=== PATIENT | female | born 1980 | race Caucasian/White ===

== ENCOUNTER 2019-06-25 14:34 | Inpatient (IN) | payer OTHER, MEDICAID ==
[2019-06-25 15:46] LABS: ADD MAN DIFF? NO
[2019-06-25 15:48] LABS: WHITE BLOOD COUNT 11.2 10^3/ul (4.8-10.8)
[2019-06-25 15:48] LABS: BASOPHIL # 0.1 10^3/ul (0.0-0.1); BASOPHILS % 0.4 % (0.0-2.0); EOSINOPHILS # 0.3 10^3/ul (0.0-0.5); EOSINOPHILS % 2.9 % (0.0-7.0); HEMATOCRIT 34.8 % (37.0-47.0); HEMOGLOBIN 10.9 g/dl (12.0-16.0); LYMPHOCYTES # 1.4 10^3/ul (0.8-2.9); LYMPHOCYTES % 12.1 % (15.0-51.0); MEAN CORPUSCULAR HEMOGLOBIN 25.3 pg (29.0-33.0); MEAN CORPUSCULAR HGB CONC 31.3 g/dl (32.0-37.0); MEAN CORPUSCULAR VOLUME 80.7 fl (82.0-101.0); MEAN PLATELET VOLUME 10.7 fl (7.4-10.4); MONOCYTES % 8.8 % (0.0-11.0); NEUTROPHIL # 8.5 10^3/ul (1.6-7.5); NEUTROPHILS % 75.4 % (39.0-77.0); PLATELET COUNT 309 10^3/UL (140-415); RED BLOOD COUNT 4.31 10^6/ul (4.20-5.40); RED CELL DISTRIBUTION WIDTH 13.1 % (11.5-14.5)
[2019-06-25 16:07] LABS: INR 0.95; PARTIAL THROMBOPLASTIN TIME 29.5 Sec (23.0-35.0); PROTIME 12.8 Sec (11.9-14.9)
[2019-06-25 16:11] LABS: ALANINE AMINOTRANSFERASE 26 IU/L (13-69); ALBUMIN 4.3 g/dl (3.3-4.9); ALKALINE PHOSPHATASE 83 IU/L (42-121); ANION GAP 7 (5-13); ASPARTATE AMINO TRANSFERASE 18 IU/L (15-46); BILIRUBIN,INDIRECT 0.3 mg/dl (0-1.1); BILIRUBIN,TOTAL 0.3 mg/dl (0.2-1.3); BLOOD UREA NITROGEN 11 mg/dl (7-20); CALCIUM 9.6 mg/dl (8.4-10.2); CARBON DIOXIDE 30 mmol/L (21-31); CHLORIDE 101 mmol/L (97-110); CREATININE 0.69 mg/dl (0.44-1.00); Estimated GFR > 60 mL/min (>60); GLUCOSE 92 mg/dl (70-220); POTASSIUM 3.7 mmol/L (3.5-5.1); SODIUM 138 mmol/L (135-144); TOTAL PROTEIN 7.6 g/dl (6.1-8.1)
[2019-06-25] MEDS: PIPER-TAZO 3.375 GM IV (PMX) 100 ML IVPB (16:41)
[2019-06-25] MEDS: morphine 4 MG/ML VIAL IV (16:48)
[2019-06-25] MEDS ORDERED: ONDANSETRON 4 MG INJ IV (17:30)
[2019-06-25] MEDS ORDERED: ACETAMINOPHEN 325 MG TAB PO (17:30)
[2019-06-25] MEDS: VANCOMYCIN 1 GM (PMX) 250 ML IVPB (17:34)
[2019-06-25] MEDS: VANCOMYCIN 1 GM 250 ML IVPB ×2 (18:00)
[2019-06-25] MEDS ORDERED: ONDANSETRON (ODT) 4 MG TAB ODT (19:30)
[2019-06-25] MEDS: VANCOMYCIN IV PER PHARMACY XX (20:19)
[2019-06-25] MEDS: FERROUS GLUCONATE (EC) 325 MG TAB PO (20:38)
[2019-06-26] MEDS: PIPER-TAZO 3.375 GM IV (PMX) 100 ML IVPB ×3 (00:57→17:10)
[2019-06-26] MEDS: ACETAMINOPHEN 325 MG TAB PO (02:36)
[2019-06-26] MEDS: VANCOMYCIN 1 GM 250 ML IVPB ×2 (05:45→18:09)
[2019-06-26 06:30] LABS: ADD MAN DIFF? NO
[2019-06-26 06:39] LABS: WHITE BLOOD COUNT 10.2 10^3/ul (4.8-10.8)
[2019-06-26 06:39] LABS: BASOPHIL # 0.1 10^3/ul (0.0-0.1); BASOPHILS % 0.5 % (0.0-2.0); EOSINOPHILS # 0.3 10^3/ul (0.0-0.5); EOSINOPHILS % 2.8 % (0.0-7.0); HEMOGLOBIN 10.9 g/dl (12.0-16.0); LYMPHOCYTES # 1.3 10^3/ul (0.8-2.9); LYMPHOCYTES % 12.2 % (15.0-51.0); MEAN CORPUSCULAR HEMOGLOBIN 25.7 pg (29.0-33.0); MEAN CORPUSCULAR HGB CONC 31.1 g/dl (32.0-37.0); MEAN CORPUSCULAR VOLUME 82.5 fl (82.0-101.0); MEAN PLATELET VOLUME 10.9 fl (7.4-10.4); MONOCYTE # 0.9 10^3/ul (0.3-0.9); MONOCYTES % 8.4 % (0.0-11.0); NEUTROPHIL # 7.8 10^3/ul (1.6-7.5); NEUTROPHILS % 75.8 % (39.0-77.0); PLATELET COUNT 287 10^3/UL (140-415); RED BLOOD COUNT 4.24 10^6/ul (4.20-5.40)
[2019-06-26] MEDS: ACETAMINOPHEN 500 MG TAB PO (07:00)
[2019-06-26 07:01] LABS: ANION GAP 6 (5-13); BLOOD UREA NITROGEN 12 mg/dl (7-20); CALCIUM 9.6 mg/dl (8.4-10.2); CARBON DIOXIDE 31 mmol/L (21-31); CHLORIDE 103 mmol/L (97-110); CHOL/HDL RATIO 4.8 RATIO; CHOLESTEROL 132 mg/dl (100-200); CREATININE 0.73 mg/dl (0.44-1.00); Estimated GFR > 60 mL/min (>60); GLUCOSE 99 mg/dl (70-220); HDL CHOLESTEROL 27 mg/dl (34-88); LDL CHOLESTEROL,CALCULATED 76 mg/dl; POTASSIUM 4.3 mmol/L (3.5-5.1); SODIUM 140 mmol/L (135-144); TRIGLYCERIDES 143 mg/dl (0-149)
[2019-06-26] MEDS ORDERED: LIDOCAINE 2% (SDV) 5 ML INJ (07:53)
[2019-06-26] MEDS ORDERED: MIDAZOLAM 1 MG/ML 2 ML INJ (07:53)
[2019-06-26] MEDS ORDERED: PROPOFOL 40 ML (07:53)
[2019-06-26] MEDS ORDERED: ONDANSETRON 4 MG INJ (07:55)
[2019-06-26] MEDS ORDERED: FENTAnyl 50 MCG/ML VIAL ×2 (07:55→09:22)
[2019-06-26] MEDS ORDERED: FAMOTIDINE 20 MG INJ (07:56)
[2019-06-26] MEDS ORDERED: EPHEDrine 25 MG/5 ML SYG IV (08:00)
[2019-06-26] MEDS ORDERED: FENTAnyl 50 MCG/ML VIAL IV ×2 (08:00)
[2019-06-26] MEDS ORDERED: hydrALAzine 20 MG INJ IV (08:00)
[2019-06-26] MEDS ORDERED: ALBUTEROL 0.083% (NEB) 2.5 MG/3 ML AMP HHN (08:00)
[2019-06-26] MEDS ORDERED: morphine 2 MG INJ IV ×2 (08:00)
[2019-06-26] MEDS ORDERED: OXYCODONE/ACETAMINOPHEN (5/325) TAB PO ×2 (08:00)
[2019-06-26] MEDS ORDERED: ONDANSETRON 4 MG INJ IV (08:00)
[2019-06-26] MEDS ORDERED: LABETALOL HCL 20MG INJ IV (08:00)
[2019-06-26] MEDS ORDERED: MEPERIDINE 25 MG INJ IV (08:00)
[2019-06-26] MEDS ORDERED: HYDROmorphONE 1 MG/5 ML IV SYRINGE IV ×2 (08:00)
[2019-06-26] MEDS ORDERED: DIPHENHYDRAMINE 50 MG INJ IV (08:00)
[2019-06-26] MEDS ORDERED: DEXAMETHASONE 4 MG/ML 5 ML INJ (08:42)
[2019-06-26] MEDS ORDERED: PHENYLephrine (100 MCG/ML) 10ML SYG (08:46)
[2019-06-26] MEDS ORDERED: ESMOLOL 10 ML (08:53)
[2019-06-26] MEDS: FERROUS GLUCONATE (EC) 325 MG TAB PO ×3 (09:00→21:24)
[2019-06-26] MEDS ORDERED: KETOROLAC 30 MG INJ (09:06)
[2019-06-26] MEDS: HYDROmorphONE 1 MG/5 ML IV SYRINGE IV (09:47)
[2019-06-26] MEDS: KETOROLAC 15 MG INJ IV ×3 (11:28→23:08)
[2019-06-26] MEDS: FAMOTIDINE 20 MG TAB PO (21:24)
[2019-06-26] MEDS: HEPARIN 5,000 UNIT/1 ML VIAL SC (21:26)
[2019-06-27] MEDS: PIPER-TAZO 3.375 GM IV (PMX) 100 ML IVPB ×3 (01:21→16:47)
[2019-06-27] MEDS: KETOROLAC 15 MG INJ IV ×4 (05:46→22:58)
[2019-06-27 06:17] LABS: ADD MAN DIFF? NO
[2019-06-27 06:22] LABS: BASOPHILS % 0.3 % (0.0-2.0); EOSINOPHILS % 0.2 % (0.0-7.0); HEMATOCRIT 30.1 % (37.0-47.0); HEMOGLOBIN 9.4 g/dl (12.0-16.0); LYMPHOCYTES # 1.1 10^3/ul (0.8-2.9); MEAN CORPUSCULAR HEMOGLOBIN 25.1 pg (29.0-33.0); MEAN CORPUSCULAR HGB CONC 31.2 g/dl (32.0-37.0); MEAN CORPUSCULAR VOLUME 80.5 fl (82.0-101.0); MEAN PLATELET VOLUME 11.1 fl (7.4-10.4); MONOCYTE # 0.9 10^3/ul (0.3-0.9); MONOCYTES % 7.4 % (0.0-11.0); NEUTROPHIL # 9.8 10^3/ul (1.6-7.5); NEUTROPHILS % 82.7 % (39.0-77.0); PLATELET COUNT 307 10^3/UL (140-415); RED BLOOD COUNT 3.74 10^6/ul (4.20-5.40); RED CELL DISTRIBUTION WIDTH 13.1 % (11.5-14.5)
[2019-06-27 06:22] LABS: WHITE BLOOD COUNT 11.9 10^3/ul (4.8-10.8)
[2019-06-27 06:38] LABS: HEMOGLOBIN A1C 5.3 % (0-5.9)
[2019-06-27 06:43] LABS: ALANINE AMINOTRANSFERASE 28 IU/L (13-69); ALBUMIN 3.4 g/dl (3.3-4.9); ALBUMIN/GLOBULIN RATIO 1.21; ALKALINE PHOSPHATASE 66 IU/L (42-121); ANION GAP 6 (5-13); ASPARTATE AMINO TRANSFERASE 18 IU/L (15-46); BILIRUBIN,INDIRECT 0.4 mg/dl (0-1.1); BILIRUBIN,TOTAL 0.4 mg/dl (0.2-1.3); BLOOD UREA NITROGEN 13 mg/dl (7-20); CALCIUM 9.3 mg/dl (8.4-10.2); CARBON DIOXIDE 28 mmol/L (21-31); CHLORIDE 106 mmol/L (97-110); CREATININE 0.76 mg/dl (0.44-1.00); Estimated GFR > 60 mL/min (>60); GLUCOSE 108 mg/dl (70-220); POTASSIUM 3.9 mmol/L (3.5-5.1); SODIUM 140 mmol/L (135-144); TOTAL PROTEIN 6.2 g/dl (6.1-8.1)
[2019-06-27 07:00] LABS: IRON 51 ug/dl (35-150)
[2019-06-27 07:11] LABS: VANCOMYCIN,TROUGH 7.8 ug/ml (10.0-20.0)
[2019-06-27 07:12] LABS: % IRON SATURATION 19 % SAT (22-52); TOTAL IRON BINDING CAPACITY 267 ug/dl (241-421)
[2019-06-27] MEDS: VANCOMYCIN 1 GM 250 ML IVPB (07:22)
[2019-06-27 08:11] LABS: FOLATE 15.4 ng/ml (2.8-20.0)
[2019-06-27] MEDS: FERROUS GLUCONATE (EC) 325 MG TAB PO (08:48)
[2019-06-27] MEDS: FAMOTIDINE 20 MG TAB PO ×2 (08:49→21:47)
[2019-06-27] MEDS: HEPARIN 5,000 UNIT/1 ML VIAL SC ×2 (08:52→21:50)
[2019-06-27] MEDS: DAKINS 0.0125%(1/40) 473 ML SOLUTION TP (10:09)
[2019-06-27] MEDS: SOD FERRIC GLUC COMPLX 125 MG in SOD CHLORIDE 0.9% 100 ML IVPB (12:08)
[2019-06-27] MEDS: HYDROCODONE/APAP (5/325) TAB PO (13:47)
[2019-06-27] MEDS: morphine 2 MG INJ IV (14:05)
[2019-06-27] MEDS: VANCOMYCIN 1.25 GM/NS 250 ML 250 ML IVPB (18:14)
[2019-06-28] MEDS: PIPER-TAZO 3.375 GM IV (PMX) 100 ML IVPB ×3 (01:06→17:10)
[2019-06-28] MEDS: VANCOMYCIN 1.25 GM/NS 250 ML 250 ML IVPB ×2 (05:54→17:53)
[2019-06-28] MEDS: KETOROLAC 15 MG INJ IV ×4 (05:54→23:08)
[2019-06-28] MEDS: FAMOTIDINE 20 MG TAB PO ×2 (08:29→20:21)
[2019-06-28] MEDS: HEPARIN 5,000 UNIT/1 ML VIAL SC ×2 (08:30→20:24)
[2019-06-28] MEDS: DAKINS 0.0125%(1/40) 473 ML SOLUTION TP (08:31)
[2019-06-28] MEDS: morphine 2 MG INJ IV (13:46)
[2019-06-28] MEDS: SOD FERRIC GLUC COMPLX 125 MG in SOD CHLORIDE 0.9% 100 ML IVPB (13:48)
[2019-06-28] MEDS: HYDROCODONE/APAP (5/325) TAB PO (20:22)
[2019-06-29] MEDS: PIPER-TAZO 3.375 GM IV (PMX) 100 ML IVPB ×3 (00:32→17:19)
[2019-06-29] MEDS: KETOROLAC 15 MG INJ IV (05:23)
[2019-06-29] MEDS: VANCOMYCIN 1.25 GM/NS 250 ML 250 ML IVPB ×2 (05:28→18:37)
[2019-06-29 05:53] LABS: BLOOD UREA NITROGEN 10 mg/dl (7-20)
[2019-06-29 05:53] LABS: CREATININE 0.82 mg/dl (0.44-1.00)
[2019-06-29] MEDS: FAMOTIDINE 20 MG TAB PO ×2 (09:15→20:06)
[2019-06-29] MEDS: DAKINS 0.0125%(1/40) 473 ML SOLUTION TP (09:16)
[2019-06-29] MEDS: HEPARIN 5,000 UNIT/1 ML VIAL SC ×2 (09:18→20:20)
[2019-06-29] MEDS: SOD FERRIC GLUC COMPLX 125 MG in SOD CHLORIDE 0.9% 100 ML IVPB (13:03)
[2019-06-29] MEDS: HYDROCODONE/APAP (5/325) TAB PO (15:17)
[2019-06-29] MEDS: morphine 2 MG INJ IV (17:37)
[2019-06-29 17:55] LABS: VANCOMYCIN,TROUGH 12.8 ug/ml (10.0-20.0)
[2019-06-29] MEDS: ONDANSETRON 4 MG INJ IV (21:42)
[2019-06-30] MEDS: PIPER-TAZO 3.375 GM IV (PMX) 100 ML IVPB ×2 (00:22→08:26)
[2019-06-30] MEDS: HYDROCODONE/APAP (5/325) TAB PO ×2 (00:58→08:25)
[2019-06-30] MEDS: VANCOMYCIN 1.25 GM/NS 250 ML 250 ML IVPB ×2 (05:44→17:55)
[2019-06-30 07:26] LABS: ADD MAN DIFF? NO
[2019-06-30 07:33] LABS: BASOPHILS % 0.4 % (0.0-2.0); HEMATOCRIT 30.6 % (37.0-47.0); HEMOGLOBIN 9.5 g/dl (12.0-16.0); LYMPHOCYTES % 12.6 % (15.0-51.0); MEAN CORPUSCULAR HEMOGLOBIN 25.2 pg (29.0-33.0); MEAN CORPUSCULAR VOLUME 81.2 fl (82.0-101.0); MEAN PLATELET VOLUME 10.9 fl (7.4-10.4); NEUTROPHIL # 6.7 10^3/ul (1.6-7.5); NEUTROPHILS % 73.4 % (39.0-77.0); PLATELET COUNT 259 10^3/UL (140-415); RED BLOOD COUNT 3.77 10^6/ul (4.20-5.40); RED CELL DISTRIBUTION WIDTH 13.3 % (11.5-14.5)
[2019-06-30 07:33] LABS: WHITE BLOOD COUNT 9.1 10^3/ul (4.8-10.8)
[2019-06-30 07:34] LABS: EOSINOPHILS # 0.2 10^3/ul (0.0-0.5); LYMPHOCYTES # 1.1 10^3/ul (0.8-2.9)
[2019-06-30] MEDS: FAMOTIDINE 20 MG TAB PO ×2 (08:24→21:00)
[2019-06-30] MEDS: HEPARIN 5,000 UNIT/1 ML VIAL SC ×3 (08:33→21:16)
[2019-06-30] MEDS: DAKINS 0.0125%(1/40) 473 ML SOLUTION TP (08:33)
[2019-06-30] MEDS: ERTAPENEM SODIUM 1 GM in SOD CHLORIDE 0.9% 100 ML IVPB (12:35)
[2019-06-30] MEDS: SOD FERRIC GLUC COMPLX 125 MG in SOD CHLORIDE 0.9% 100 ML IVPB (13:22)
[2019-06-30] MEDS: morphine 2 MG INJ IV (15:19)
[2019-06-30] MEDS: HYDROmorphONE 1 MG/ML SYG IV (17:48)
[2019-07-01 12:07] LABS: NIL 0.03 IU/mL; QUANTIFERON(R)-TB GOLD NEGATIVE (NEGATIVE); TB2-NIL <0.00 IU/mL
== END 2019-06-30 21:40 | disposition home health service (06) | DRG 585 ==
LOC: FTE 14:34 → 2NE 17:04
PROC: 0H9U0ZX Drainage of Left Breast, Open Approach, Diagnostic (ICD-10-PCS; principal; 2019-06-26 08:22)
PROC: 0HBU0ZZ Excision of Left Breast, Open Approach (ICD-10-PCS; 2019-06-26 08:22)
DX: N61.1 Abscess of the breast and nipple (principal); E03.9 Hypothyroidism, unspecified; D64.9 Anemia, unspecified; F41.9 Anxiety disorder, unspecified; N64.4 Mastodynia
CPT/HCPCS: 36415; 36573; 80048; 80053; 80061; 80202; 82565; 82607; 82746; 83036; 83540; 83735; 84100; 84520; 84703; 85025; 85610; 85730; 86480; 87070; 87075; 87102; 87116; 93005; 96365; 96375; 99285-25; G0378

== ENCOUNTER 2019-07-07 21:10 | Emergency (ER) | payer OTHER ==
[2019-07-07] MEDS: ACETAMINOPHEN 325 MG TAB PO (21:58)
[2019-07-07] MEDS: CEFEPIME 2GM/50 ML (PMX) 50 ML IVPB (21:59)
[2019-07-07] MEDS: SODIUM CHLORIDE 0.9% 1L BAG IV* (21:59)
[2019-07-07 22:03] LABS: ADD MAN DIFF? NO
[2019-07-07 22:06] LABS: WHITE BLOOD COUNT 6.5 10^3/ul (4.8-10.8)
[2019-07-07 22:06] LABS: ABNORMAL IP MESSAGE 1; BASOPHILS % 0.2 % (0.0-2.0); EOSINOPHILS # 0.2 10^3/ul (0.0-0.5); EOSINOPHILS % 2.3 % (0.0-7.0); HEMATOCRIT 30.9 % (37.0-47.0); HEMOGLOBIN 9.8 g/dl (12.0-16.0); LYMPHOCYTES # 0.4 10^3/ul (0.8-2.9); LYMPHOCYTES % 6.7 % (15.0-51.0); MEAN CORPUSCULAR HEMOGLOBIN 25.4 pg (29.0-33.0); MEAN CORPUSCULAR HGB CONC 31.7 g/dl (32.0-37.0); MEAN CORPUSCULAR VOLUME 80.1 fl (82.0-101.0); MEAN PLATELET VOLUME 11.2 fl (7.4-10.4); MONOCYTE # 0.4 10^3/ul (0.3-0.9); MONOCYTES % 5.9 % (0.0-11.0); NEUTROPHIL # 5.5 10^3/ul (1.6-7.5); NEUTROPHILS % 84.4 % (39.0-77.0); PLATELET COUNT 165 10^3/UL (140-415); RED BLOOD COUNT 3.86 10^6/ul (4.20-5.40); RED CELL DISTRIBUTION WIDTH 14.3 % (11.5-14.5)
[2019-07-07 22:09] LABS: POSITIVE DIFF @See below
[2019-07-07 22:24] LABS: ALANINE AMINOTRANSFERASE 47 IU/L (13-69); ALBUMIN 3.3 g/dl (3.3-4.9); ALKALINE PHOSPHATASE 103 IU/L (42-121); ANION GAP 7 (5-13); ASPARTATE AMINO TRANSFERASE 34 IU/L (15-46); BILIRUBIN,INDIRECT 0.3 mg/dl (0-1.1); BILIRUBIN,TOTAL 0.3 mg/dl (0.2-1.3); BLOOD UREA NITROGEN 13 mg/dl (7-20); CARBON DIOXIDE 26 mmol/L (21-31); CHLORIDE 101 mmol/L (97-110); CREATININE 0.74 mg/dl (0.44-1.00); Estimated GFR > 60 mL/min (>60); GLUCOSE 96 mg/dl (70-220); POTASSIUM 4.2 mmol/L (3.5-5.1); SODIUM 134 mmol/L (135-144); TOTAL PROTEIN 6.3 g/dl (6.1-8.1)
[2019-07-07 22:26] LABS: PROTIME 12.3 Sec (11.9-14.9)
[2019-07-07 22:27] LABS: PARTIAL THROMBOPLASTIN TIME 33.1 Sec (23.0-35.0)
[2019-07-07] MEDS: VANCOMYCIN 1 GM (PMX) 250 ML IVPB (22:31)
[2019-07-07 22:34] LABS: TROPONIN-I < 0.012 ng/ml (0.000-0.120)
[2019-07-07] MEDS: DIPHENHYDRAMINE 50 MG INJ IV (23:27)
== END 2019-07-08 00:50 | disposition home or self-care (01) ==
LOC: E/R 07-08 00:50
DX: N61.1 Abscess of the breast and nipple (principal); R00.0 Tachycardia, unspecified
CPT/HCPCS: 36415; 71045; 80053; 83605; 84484; 85025; 85610; 85730; 87040-91; 93005; 96365; 96366; 96367; 96375; 99285-25